=== PATIENT | female | born 1940 | race Caucasian/White ===

== ENCOUNTER 2017-03-21 07:39 | Outpatient (CLI) | payer MEDICARE ==
--- NOTE | 2017-03-21 11:07 | CT ---
CT ABDOMEN AND PELVIS WITH AND WITHOUT CONTRAST: HISTORY: Ileitis. Gastroenteritis. Stomach cramps. Ileum infection. Recent examination at [facility]. COMPARISON: Outside facility examinations from 02/19/2017 and from 07/15/2015. FINDINGS: The pre-contrast image shows no nephroureterolithiasis or hydroureteronephrosis. There is some inges tisha debris within the cecum, as well as in the stomach, which is radiopaque. On all phases of contrast enhancement, there is no longer the dilated and thick-walled loop of distal ileum, as was previously seen. There is no inflammation of the mesentery. No dilated loops of large or small bowel. No abnormal wa ll thickening. There is a left portal vein to left hepatic vein shunt. There is marked dilatation of the right gona mai vein with some accessory branches to the radha hepatis. The aortoiliac contour is normal. No adenopathy. Mild levoscoliosis. IMPRESSION: 1. Interval resolution of abnormal thickening or dilated loops of bowel. The ileitis that was previ ously noted has resolved. No evidence of active inflammation. 2. Left portal vein to left hepatic vein shunting, as well as collateral vessels from the right gona mai vein to the radha hepatis. 3. 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 POS: [facility]
[2017-03-21] MEDS ORDERED: Iopamidol 370 76% 100 ML VIAL ONE (11:52)
== END 2017-03-21 07:40 | disposition home or self-care (01) ==
LOC: CT 07:39
PROVIDERS: ATTEND Internal Medicine Gastroenterology
DX: K52.9 Noninfective gastroenteritis and colitis, unspecified (principal); K63.89 Other specified diseases of intestine; K76.89 Other specified diseases of liver; I87.8 Other specified disorders of veins
CPT/HCPCS: 74178; 82565

== ENCOUNTER 2019-04-10 05:36 | Day surgery (SDC) | payer MEDICARE ==
[2019-04-09 09:26] VITALS: BMI 26.2
[2019-04-10] MEDS ORDERED: Fluorouracil 100 MG, Enoxaparin Sodium 25 MG, EPINEPHrine 0.3 MG in Ophthalmic Irrigati... IRR SCH (06:00)
[2019-04-10] MEDS ORDERED: Phenylephrine 2.5% Ophth Soln 5 ML BOT ONE (06:04)
[2019-04-10] MEDS ORDERED: Cyclopentolate 1% Opth Drop 2 ML BOT ONE (06:04)
[2019-04-10] MEDS ORDERED: Fentanyl 100 MCG/2 ML VIAL ONE (06:43)
[2019-04-10] MEDS ORDERED: PROPOFOL 60 ML ONE (06:43)
[2019-04-10] MEDS ORDERED: Enoxaparin Sodium 30 MG/0.3 ML SYRINGE ONE (09:38)
[2019-04-10] MEDS ORDERED: Lidocaine 4% PF 5 ML AMP ONE (09:38)
[2019-04-10] MEDS ORDERED: Maxitrol 0.1% Opth Oint 3.5 GM TUBE ONE (09:38)
[2019-04-10] MEDS ORDERED: Bupivacaine PF 0.75% SDV 10 ML ONE (09:38)
[2019-04-10] MEDS ORDERED: CEFAZOLIN 1 GM VIAL ONE (09:38)
[2019-04-10] MEDS ORDERED: Indocyanine Green 25 MG/10 ML VIAL ONE (09:38)
[2019-04-10] MEDS ORDERED: Lidocaine 1% PF 5 ML VIAL ONE (09:38)
[2019-04-10] MEDS ORDERED: Triamcinolone 40 MG/ML VIAL ONE (09:38)
--- NOTE | 2019-04-11 08:55 | OP ---
DATE OF PROCEDURE: 04/10/2019 PREOPERATIVE DIAGNOSIS: Macular hole, left eye. POSTOPERATIVE DIAGNOSIS: Macular hole, left eye. PROCEDURES PERFORMED: Pars plana vitrectomy and internal limiting membrane peel, left eye. ANESTHESIA: Local with monitored anesthesia care. PROCEDURE IN DETAIL: The patient was identified in the preoperative holding area. Appropriate informed consent for the planned surgical procedure on the left eye has been obtained. The patient was transported to the operative suite. Appropriate cardiopulmonary monitoring was established. Local anesthesia was obtained using retrobulbar. The patient was prepped and draped in usual sterile manner for ophthalmic surgery, left eye. Lid speculum was placed in the left eye. A 27-gauge trocar was placed in the conjunctiva and sclera supratemporally, inferotemporally, supranasally. Infusion line was placed inferotemporally. Light pipe and vitreous cutter inserted into the eye. Core vitrectomy was performed. Indocyanine green dye was infused on the posterior pole x1, identifying the internal limiting membrane and epiretinal membrane. These were elevated using membrane scraper, peeled across the macula in one piece using gripping forceps. Complete air-fluid exchange was performed with the 10 minutes being left for the fluid to drain posteriorly. Prophylactic laser was placed behind the sclerotomy sites using indirect ophthalmoscopy. 28% sulfur hexafluoride gas was infused into the eye. Trocars were removed. Supranasal sclerotomy was suture closed. Retrobulbar Kenalog and subconjunctival Ancef were placed. Antibiotic ointment placed. The eye was patched and shielded. The patient was taken to postoperative recovery unit in good condition, having suffered no immediate perioperative appropriate complications. The patient was instructed to avoid flat and back positioning. Followup appointment with Dr. Farfan. Job ID: [id number]
== END 2019-04-10 09:13 | disposition home or self-care (01) ==
LOC: SDC 05:36
PROVIDERS: ATTEND Ophthalmology Retina Specialist
PROC: 08T53ZZ Resection of Left Vitreous, Percutaneous Approach (ICD-10-PCS; principal; 2019-04-10)
PROC: 08NF3ZZ Release Left Retina, Percutaneous Approach (ICD-10-PCS; 2019-04-10)
DX: H35.342 Macular cyst, hole, or pseudohole, left eye (principal); I10 Essential (primary) hypertension; Z79.899 Other long term (current) drug therapy
CPT/HCPCS: 67025; J0171; J0690; J1650; J2001; J2704; J3010; J3301; J3490; J9190